=== PATIENT | female | born 1985 | race Caucasian/White ===

== ENCOUNTER → 2016-09-13 | Outpatient (REF) | payer OTHER ==
[~2016-09-13] MED LIST: ACET50TA PO; IBUP80TA PO; TUMS500C PO
== END ==
LOC: M LAB REF 10:19
PROVIDERS: ATTEND Physician Assistant Medical
DX: J02.9 Acute pharyngitis, unspecified (principal)

== ENCOUNTER → 2021-04-23 | Outpatient (CLI) | payer OTHER ==
[~2021-04-23] MED LIST changes: -ACET50TA PO; +MAPA500T2 PO
== END ==
LOC: M LABSMTC 13:37
PROVIDERS: ATTEND Pediatrics
DX: Z20.822 Contact with and (suspected) exposure to COVID-19 (principal)

== ENCOUNTER 2022-03-02 20:16 | Emergency (ER) | payer OTHER ==
[~2022-03-02] VITALS: Ht 157.5 cm; Wt 87.9 kg
[2022-03-02] MEDS ORDERED: ACETAMINOPHEN TAB 650MG DOSE (2X325MG) PO ONE (20:30)
[2022-03-02] MEDS ORDERED: OSEL75CA PO (22:30)
[2022-03-02] MEDS ORDERED: OSELTAMIVIR PHOSPHATE 75 MG CAP (TAMIFLU) PO ONE (22:30)
[2022-03-02 22:35] VITALS: BP 116/67
== END 2022-03-02 22:39 | disposition home or self-care (01) ==
LOC: M ED 20:16
DX: J09.X2 Influenza due to identified novel influenza A virus with other respiratory manifestations (principal); F12.10 Cannabis abuse, uncomplicated; Z79.899 Other long term (current) drug therapy